=== PATIENT | female | born 1980 | race Two or more races ===

== ENCOUNTER 2019-06-08 22:05 | Emergency (ER) | payer SELFPAY ==
[~2019-06-08] VITALS: Ht 165.1 cm; Wt 121.1 kg
[2019-06-08 23:10] LABS: Basophils # (auto) 0 uL; Basophils % (auto) 0.3 % (0.0-2.0); Eosinophils # (auto) 0.2 uL; Eosinophils % (auto) 1.4 % (0.0-7.0); Hematocrit 42.5 % (36.0-46.0); Hemoglobin 14.2 g/dL (12.2-16.2); Lymphocytes # (auto) 2.3 uL; Lymphocytes % (auto) 16.6 % (10.0-50.0); Mean Corpuscular Hemoglobin 28.5 pg (28.0-32.0); Mean Corpuscular Hgb Conc. 33.4 g/dL (32.0-36.0); Mean Corpuscular Volume 85.3 fL (80.0-100.0); Monocytes # (auto) 0.6 uL; Monocytes % (auto) 4.3 % (0.0-12.0); Neutrophils # (auto) 10.6 uL; Neutrophils % (auto) 77.4 % (37.0-80.0); Nucleated Red Blood Cells % 0.1 %; Platelet Count (auto) 291 10^3/uL (140-450); Red Blood Cells 4.98 10^6/uL (4.0-5.20); Red Cell Distribution Width 13.9 % (11.8-14.3); White Blood Cell 13.7 10^3/uL (4.4-10.8)
[2019-06-08 23:12] LABS: Urine Bacteria NONE SEEN /hpf (None Seen); Urine Blood 2+ /uL (Negative); Urine Mucus FEW (None Seen); Urine Specific Gravity 1.025 (1.001-1.035); Urine WBC 5 /hpf (0 - 5)
[2019-06-08 23:23] LABS: Calcium 8.7 mg/dL (8.5-10.1); Potassium 3.8 mmol/L (3.5-5.1)
[2019-06-08 23:26] LABS: BUN/Creatinine Ratio 7.1; Bilirubin, Total 0.3 mg/dL (0.2-1.0); Total Protein 7.8 g/dL (6.4-8.2)
[2019-06-09] MEDS ORDERED: SODIUM CHLORIDE 0.9% 1,000 ML IVB ONE (08:20)
[2019-06-09] MEDS ORDERED: METOCLOPRAMIDE HCL 5MG/ml INJ 2ml VIAL IV ONE (08:30)
[2019-06-09] MEDS ORDERED: PANTOPRAZOLE 40 MG TAB PO ONE (08:30)
[2019-06-09] MEDS ORDERED: KETOROLAC TROMETH 30 MG/ML 1ML VIAL IV ONE (08:30)
[2019-06-09] MEDS ORDERED: PANTOPRAZOLE 80 MG in SODIUM CHL 0.9% 60 ML IV ONE (08:30)
[2019-06-09 09:18] LABS: INR 0.95 (0.9-1.15); Partial Thromboplastin Time 27.4 sec (23.64-32.05)
[2019-06-09] MEDS: FOLIC ACID 1 MG, MULTIPLE VITAMIN 10 ML, MAGNESIUM SULF SDV 50% 8 MEQ, THIAMINE INJ 100... INJ SCH ×10 (09:31→09:39)
[2019-06-09] MEDS ORDERED: IOHEXOL 300 MG/ML 100ML BOTTLE IJ ONE (12:05)
[2019-06-09] MEDS ORDERED: VANCOMYCIN HCL 500MG/5ML ORAL SOL PO ONE (13:15)
[2019-06-09] MEDS ORDERED: metroNIDAZOLE 500MG/100ML 100 ML IV ONE (13:15)
[2019-06-09 14:58] VITALS: BP 113/64
== END 2019-06-09 16:16 | disposition home or self-care (01) ==
LOC: ER 22:05
DX: K52.9 Noninfective gastroenteritis and colitis, unspecified (principal); E11.65 Type 2 diabetes mellitus with hyperglycemia; E46 Unspecified protein-calorie malnutrition
CPT/HCPCS: 36415; 71046; 74177; 80053; 80320; 81001; 81025; 82962; 83690; 83735; 85025; 85610; 85730; 93005; 94761; 96365; 96366; 96368; 96375; 99284; C9113; J1885; J2765; J3370; J3411; J3475; J3490; J7030; Q9967